=== PATIENT | female | born 1960 | race Caucasian/White ===

== ENCOUNTER → 2023-04-01 14:55 | Outpatient (CLI) | payer BC, SELFPAY ==
--- NOTE | ~2023-04-01 | MM_ITS ---
EXAMINATION: MM screening [facility] BI w jony HISTORY: Screening mammogram TECHNIQUE: Craniocaudal and mediolateral oblique 3-D tomosynthesis images were obtained and synthetic 2-D images were generated. CAD analysis was submitted and interpreted. COMPARISON: 03/07/2019, 05/09/2013, 04/28/2012 BREAST PARENCHYMAL COMPOSITION: The breasts are almost entirely fatty. FINDINGS: No suspicious mass, calcification, or architectural distortion are identified in either fay ast to suggest malignancy. There has been no suspicious interval change. IMPRESSION: 1. No mammographic evidence of malignancy. 2. Recommend routine screening mammography in one year. BI-RADS Category 1: Negative Reviewed, dictated and finalized at location A.
== END ==
PROVIDERS: PCP Family Medicine; Visit Provider Family Medicine
DX: Z12.31 Encounter for screening mammogram for malignant neoplasm of breast (principal)
CPT/HCPCS: 77063; 77067

== ENCOUNTER 2024-04-06 14:51 | Outpatient (CLI) | payer BC, SELFPAY ==
--- NOTE | ~2024-04-06 | MM_ITS ---
EXAMINATION: MM screening [facility] BI w jony HISTORY: Screening TECHNIQUE: Craniocaudal and mediolateral oblique 3-D tomosynthesis images were obtained and synthetic 2-D images were generated. CAD analysis was submitted and interpreted. COMPARISON: Comparison to multiple prior studies sequentially, with oldest reviewed study dated 12/2018. BREAST PARENCHYMAL COMPOSITION: Not Dense: The breasts are almost entirely fatty. FINDINGS: There is no evidence of suspicious mass, calcification, or architectural distortion to sugg est malignancy in either breast. There has been no suspicious interval change. IMPRESSION: 1. No mammographic evidence of malignancy. 2. Recommend routine screening mammography in one year. BI-RADS Category 1: Negative Reviewed, dictated and finalized at location B.
== END 2024-04-06 14:52 | disposition home or self-care (01) ==
LOC: MICIMG 14:52
PROVIDERS: PCP Family Medicine; Visit Provider Family Medicine
DX: Z12.31 Encounter for screening mammogram for malignant neoplasm of breast (principal)
CPT/HCPCS: 77063; 77067

== ENCOUNTER 2024-06-02 15:57 | Outpatient (CLI) | payer BC, SELFPAY ==
--- NOTE | ~2024-06-02 | MR_ITS ---
Procedure: MR orbits face neck wo con Ordering provider: Mane Rizvi MD History: . 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 Comparison: None. Technique: MRI brain with contrast. MRI orbits utilizing thin slice axial and sagittal pre- and post contrast images per protocol. FINDINGS: BRAIN: BONES: Normal. MAJOR INTRACRANIAL VESSELS: Normal flow void. CRANIAL NERVES VII AND VIII COMPLEXES: Grossly unremarkable. BRAIN PARENCHYMA AND CSF SPACES: Visualized portion of the brain shows The craniocervical junction an d midline structures are normal. The brainstem and cerebellum are normal. There is no evidence for ac [place] or chronic intracranial hemorrhage. No extra axial fluid collections .No midline shift or mass ef fect. Empty sella turcica. PARANASAL SINUSES: Bilateral ethmoid sinus. MASTOIDS: Normal SUPERFICIAL/SURROUNDING SOFT TISSUES: Slight enlargement with no definite focal lesion seen in both p arotid and submandibular glands. Enlargement of the left parotid is more than the right. Small lymph nodes are seen in both parotid glands. increased T2 signal is seen in the right thyroid. Ultrasound evaluation advised. ORBITS: The optic globes are normal. The optic nerves and ocular muscles are normal in signal without abnormal enhancement. The orbital fat is normal. No orbital mass or abnormal enhancement. IMPRESSION: Enlarged bilateral prominent axillary parotid glands with no focal lesions. which may indicate paroti ditis more prominent on the left side. Clinical correlation and follow-up advised. T2 bright signal in the right thyroid gland. Ultrasound evaluation advised. Reviewed, dictated and finalized at location A. [facility] OPERATOR IMPRESSION: Enlarged bilateral prominent axillary parotid glands with no focal lesions. whi ch may indicate parotiditis more prominent on the left side. Clinical correlati on and follow-up advised. T2 bright signal in the right thyroid gland. Ultrasound evaluation advised.
== END 2024-06-02 15:58 | disposition home or self-care (01) ==
LOC: ANHIMG 16:00
PROVIDERS: PCP Family Medicine; Visit Provider Family Medicine
DX: K11.1 Hypertrophy of salivary gland (principal); J32.9 Chronic sinusitis, unspecified
CPT/HCPCS: 70540